=== PATIENT | female | born 1935 | race Caucasian/White ===

== ENCOUNTER 2017-03-20 06:40 | Emergency (ER) | payer MEDICARE, OTHER ==
--- NOTE | 2017-03-20 07:05 | EDM.PDOC ---
ED HPI GENERAL MEDICAL PROBLEM - General Chief Complaint: Abdominal Pain Stated Complaint: [id number] SEVERE ABDOMINAL PAIN Time Seen by Provider: 03/20/17 07:00 Source of Information: Reports: Patient, EMS, Family (son), Old Records, RN, RN Notes Reviewed History Limitations: Reports: No Limitations - History of Present Illness INITIAL COMMENTS - FREE TEXT/NARRATIVE: Arrives from home by POV with c/o waking with sudden onset of upper abdominal pain which progressively worsened to severe and became generalized abdominal pain over the course of 2 to 3 hours. Pt reports intense nausea, and began vomiting on arrival to the ER. She denies radiating pain fever, diarrhea, constipation, abdominal distention, or urinary symptoms. Admits to chills. Last ate at dinner last evening. Last BM was this morning, and was normal with no blood, dark, black, or melanotic stool. Onset: Sudden Onset Date: 03/20/17 Onset Time: 03:00 Duration: Constant, Getting Worse Location: Reports: Abdomen Quality: Reports: Ache, Pressure, Sharp Severity: Severe Improves with: Reports: None Worsens with: Reports: None Context: Denies: Activity, Exercise, Lifting, Sick Contact, Trauma Associated Symptoms: Reports: No Other Symptoms Upper Mid-Anterior Abdomen Pain Score (Numeric/FACES): 8 - Related Data Allergies Allergy/AdvReac Type Severity Reaction Status Date / Time codeine Allergy Anxiety Verified 11/10/16 07:34 naloxone [From Narcan] Allergy Nausea and Verified 11/09/16 13:27 Vomiting Home Meds: Home Meds Acetaminophen 500 mg PO ASDIRECTED PRN 11/09/16 [History] Aspirin [Lo-Dose Aspirin EC] 81 mg PO DAILY 11/09/16 [History] Calcium Carbonate/Vitamin D3 [Calcium 600 + Vit D Softgel] 2 tab PO DAILY [History] Gabapentin [Neurontin] 300 mg PO QID 11/09/16 [History] Metoprolol Succinate [Toprol XL] 25 mg PO DAILY 11/09/16 [History] Multivitamin [One Daily] 1 tab PO DAILY 11/09/16 [History] Simvastatin [Zocor] 20 mg PO BEDTIME 11/09/16 [History] Past Medical History Cardiovascular History: Reports: Heart Murmur, Heart Valve Replacement (mitral) , High Cholesterol, Hypertension Gastrointestinal History: Reports: Irritable Bowel Syndrome Neurological History: Reports: Neuropathy, Peripheral Social & Family History - Family History Family Medical History: Noncontributory - Caffeine Use Caffeine Use: Reports: Coffee - Alcohol Use Alcohol Use History: No - Recreational Drug Use Recreational Drug Use: No - Living Situation & Occupation Living situation: Reports: with Significant Other Occupation: Retired ED ROS GENERAL - Review of Systems Review Of Systems: ROS reveals no pertinent complaints other than HPI. ED EXAM, GI/ABD - Physical Exam Exam: See Below Exam Limited By: No Limitations General Appearance: Alert, WD/WN, Anxious, Mild Distress (with abdominal pain), Active Emesis Eyes: Bilateral: Normal Appearance Nose: Normal Inspection Throat/Mouth: Normal Inspection, Normal Oropharynx, Normal Voice, No Airway Compromise Head: Atraumatic, Normocephalic Neck: Normal Inspection, Supple, Non-Tender, Full Range of Motion Respiratory/Chest: No Respiratory Distress, Lungs Clear, Normal Breath Sounds, No Accessory Muscle Use, Chest Non-Tender Cardiovascular: Regular Rate, Rhythm, No Edema GI/Abdominal: Soft, No Distention, No Abnormal Bruit, Pelvis Stable, Hypoactive Bowel Sounds, Tenderness (generalized, worse at epigastric region). No: Guarding, Rebound, Rigidity (Female) Exam: Deferred Rectal (Female) Exam: Deferred Back Exam: Normal Inspection Extremities: Normal Inspection Neurological: Alert, Oriented, CN II-XII Intact, Normal Cognition, No Motor/ Sensory Deficits Psychiatric: Anxious Skin Exam: Warm, Intact, Normal Color, No Rash, Diaphoretic Course - Vital Signs Last Recorded V/S: Last Vital Signs Temp 35.8 C 03/20/17 07:04 Pulse 98 03/20/17 07:04 Resp 16 03/20/17 07:04 BP 125/98 H 03/20/17 07:04 Pulse Ox 87 L 03/20/17 07:04 - Orders/Labs/Meds Orders: Active Orders 24 hr Category Date Time Status Peripheral IV Care [RC] . DIRECTED Care 03/20/17 07:13 Active Abdomen Pelvis w Cont [CT] Stat Exams 03/20/17 08:29 Taken CULTURE BLOOD [BC] Stat Lab 03/20/17 07:24 Results CULTURE BLOOD [BC] Stat Lab 03/20/17 07:35 Results Sodium Chloride 0.9% [Normal Saline] 1,000 ml Med 03/20/17 07:13 Active IV .BOLUS Sodium Chloride 0.9% [Saline Flush] Med 03/20/17 07:13 Active 10 ml FLUSH ASDIRECTED PRN Blood Culture x2 Reflex Set [OM.PC] Stat Oth 03/20/17 07:12 Ordered Peripheral IV Insertion Adult [OM.PC] Stat Ot 03/20/17 07:12 Ordered Medication Orders Sodium Chloride (Normal Saline) 1,000 mls @ 250 mls/hr IV .BOLUS ONE Stop: 03/20/17 11:12 Last Admin: 03/20/17 07:33 Dose: 250 mls/hr Sodium Chloride (Saline Flush) 10 ml FLUSH ASDIRECTED PRN PRN Reason: Keep Vein Open Labs: Laboratory Tests 03/20/17 03/20/17 03/20/17 Range/Units 07:35 07:39 07:39 WBC 8.9 (5.0-10.0) 10^3/uL RBC 4.90 (4.2-5.4) 10^6/uL Hgb 15.0 (12.0-16.0) g/dL Hct 44.4 (37.0-47.0) % MCV 90.6 (80-100) fL MCH 30.6 (27.0-34.0) pg MCHC 33.8 (33.0-35.0) g/dL Plt Count 127 L (150-450) 10^3/uL Neut % (Auto) 83.3 H (42.2-75.2) % Lymph % (Auto) 12.9 L (20.5-50.1) % [place] % (Auto) 3.5 (2-8) % Eos % (Auto) 0.3 L (1.0-3.0) % Baso % (Auto) 0.0 (0.0-1.0) % Sodium 144 (135-145) mmol/L Potassium 4.1 (3.6-5.0) mmol/L Chloride 102 (101-111) mmol/L Carbon Dioxide 26.0 (21.0-31.0) mmol/L Anion Gap 20.1 BUN 14 (7-18) mg/dL Creatinine 0.7 (0.6-1.3) mg/dL Est Cr Clr Drug Dosing TNP Estimated GFR (MDRD) > 60 BUN/Creatinine Ratio 20.00 Glucose 185 H (74-105) mg/dL Lactic Acid 4.1 H (0.5-2.2) mmol/L Calcium 9.8 (8.4-10.2) mg/dl Total Bilirubin 0.7 (0.2-1.0) mg/dL AST 27 (10-42) IU/L ALT 21 (10-60) IU/L Alkaline Phosphatase 61 (42-121) IU/L Troponin I < 0.02 (0.00-0.02) ng/ml Total Protein 7.1 (6.7-8.2) g/dl Albumin 4.3 (3.2-5.5) g/dl Globulin 2.8 Albumin/Globulin Ratio 1.54 Amylase 67 (28-100) U/L Lipase 21 L (22-51) U/L Urine Color (YELLOW) Urine Appearance (CLEAR) Urine pH (5.0-9.0) Ur Specific [place] (1.005-1.030) Urine Protein (NEGATIVE) Urine Glucose (UA) (NEGATIVE) Urine Ketones (NEGATIVE) Urine Occult Blood (NEGATIVE) Urine Nitrite (NEGATIVE) Urine Bilirubin (NEGATIVE) Urine Urobilinogen (0.2-1.0) mg/dL Ur Leukocyte Esterase (NEGATIVE) Urine RBC /HPF Urine WBC (0-5/HPF) /HPF Amorphous Sediment (0/HPF) /HPF Urine Bacteria (0-FEW/HPF) /HPF 07/08/17 Range/Units 08:45 WBC (5.0-10.0) 10^3/uL RBC (4.2-5.4) 10^6/uL Hgb (12.0-16.0) g/dL Hct (37.0-47.0) % MCV (80-100) fL MCH (27.0-34.0) pg MCHC (33.0-35.0) g/dL Plt Count (150-450) 10^3/uL Neut % (Auto) (42.2-75.2) % Lymph % (Auto) (20.5-50.1) % [place] % (Auto) (2-8) % Eos % (Auto) (1.0-3.0) % Baso % (Auto) (0.0-1.0) % Sodium (135-145) mmol/L Potassium (3.6-5.0) mmol/L Chloride (101-111) mmol/L Carbon Dioxide (21.0-31.0) mmol/L Anion Gap BUN (7-18) mg/dL Creatinine (0.6-1.3) mg/dL Est Cr Clr Drug Dosing Estimated GFR (MDRD) BUN/Creatinine Ratio Glucose (74-105) mg/dL Lactic Acid (0.5-2.2) mmol/L Calcium (8.4-10.2) mg/dl Total Bilirubin (0.2-1.0) mg/dL AST (10-42) IU/L ALT (10-60) IU/L Alkaline Phosphatase (42-121) IU/L Troponin I (0.00-0.02) ng/ml Total Protein (6.7-8.2) g/dl Albumin (3.2-5.5) g/dl Globulin Albumin/Globulin Ratio Amylase (28-100) U/L Lipase (22-51) U/L Urine Color Dark yellow (YELLOW) Urine Appearance Turbid (CLEAR) Urine pH 7.5 (5.0-9.0) Ur Specific [place] 1.020 (1.005-1.030) Urine Protein Trace H (NEGATIVE) Urine Glucose (UA) Negative (NEGATIVE) Urine Ketones 40 H (NEGATIVE) Urine Occult Blood Trace-intact H (NEGATIVE) Urine Nitrite Negative (NEGATIVE) Urine Bilirubin Negative (NEGATIVE) Urine Urobilinogen 0.2 (0.2-1.0) mg/dL Ur Leukocyte Esterase Negative (NEGATIVE) Urine RBC 0-5 /HPF Urine WBC 0-5 (0-5/HPF) /HPF Amorphous Sediment Many H (0/HPF) /HPF Urine Bacteria Rare (0-FEW/HPF) /HPF Meds: Medications Generic Name Dose Route Start Last Admin Trade Name Freq PRN Reason Stop Dose Admin Sodium Chloride 1,000 mls @ 250 mls/hr 03/20/17 07:13 03/20/17 07:33 Normal Saline IV 03/20/17 11:12 250 mls/hr .BOLUS ONE Administration Sodium Chloride 10 ml 03/20/17 07:13 Saline Flush FLUSH ASDIRECTED PRN Keep Vein Open Discontinued Medications Generic Name Dose Route Start Last Admin Trade Name Freq PRN Reason Stop Dose Admin Hydromorphone HCl 0.5 mg 03/20/17 07:13 03/20/17 07:35 Dilaudid IVPUSH 03/20/17 07:14 0.5 mg ONETIME ONE Administration Iopamidol 75 ml 03/20/17 08:28 03/20/17 09:30 Isovue-300 (61%) IVPUSH 03/20/17 08:29 36 ml ONETIME ONE Administration Ondansetron HCl 4 mg 03/20/17 07:13 03/20/17 07:34 Zofran IV 03/20/17 07:14 4 mg ONETIME ONE Administration - Radiology Interpretation Free Text/Narrative:: CT Abd/Pelvis: Poss. internal hernia with extensive small bowel and mesenteric inflammation concerning for ischemia, and early SBO with small volume ascites per Rad. report. CT Results Date: 03/20/17 Departure - Departure Time of Disposition: 10:03 Disposition: DC/Tfer to Acute Hospital 02 Condition: Critical Clinical Impression: Acute ischemia of small intestine, Small bowel obstruction - Discharge Information Forms: ED Department Discharge, Interfacility Transfer EMTALA - My Orders Last 24 Hours: My Active Orders 03/20/17 07:12 Blood Culture x2 Reflex Set [OM.PC] Stat Peripheral IV Insertion Adult [OM.PC] Stat 03/20/17 07:13 Peripheral IV Care [RC] . DIRECTED Sodium Chloride 0.9% [Normal Saline] 1,000 ml IV .BOLUS Sodium Chloride 0.9% [Saline Flush] 10 ml FLUSH ASDIRECTED PRN 03/20/17 07:24 CULTURE BLOOD [BC] Stat 03/20/17 07:35 CULTURE BLOOD [BC] Stat 03/20/17 08:29 Abdomen Pelvis w Cont [CT] Stat - Assessment/Plan Last 24 Hours: My Active Orders 03/20/17 07:12 Blood Culture x2 Reflex Set [OM.PC] Stat Peripheral IV Insertion Adult [OM.PC] Stat 03/20/17 07:13 Peripheral IV Care [RC] . DIRECTED Sodium Chloride 0.9% [Normal Saline] 1,000 ml IV .BOLUS Sodium Chloride 0.9% [Saline Flush] 10 ml FLUSH ASDIRECTED PRN 03/20/17 07:24 CULTURE BLOOD [BC] Stat 03/20/17 07:35 CULTURE BLOOD [BC] Stat 03/20/17 08:29 Abdomen Pelvis w Cont [CT] Stat
[2017-03-20 07:06] VITALS: BP 125/98
[2017-03-20] MEDS ORDERED: Sodium Chloride 0.9% 10 ML Syringe FLUSH PRN (07:13)
[2017-03-20] MEDS ORDERED: Ondansetron 4 MG/2 ML SDV IV ONE (07:13)
[2017-03-20] MEDS ORDERED: HYDROmorphone 1 MG/ML Syringe IVPUSH ONE (07:13)
[2017-03-20] MEDS ORDERED: Sodium Chloride 0.9% 1,000 ML IV ONE (07:13)
[2017-03-20 08:12] LABS: CHLORIDE,CL 102 mmol/L (101-111); SODIUM,NA 144 mmol/L (135-145)
[2017-03-20] MEDS ORDERED: Iopamidol 612 MG/ML 75 ML Bottle IVPUSH ONE (08:28)
== END 2017-03-20 10:21 ==
LOC: DL.ED 06:40
DX: K55.019 Acute (reversible) ischemia of small intestine, extent unspecified (principal); K56.60 Unspecified intestinal obstruction; E78.00 Pure hypercholesterolemia, unspecified; I10 Essential (primary) hypertension; Z88.5 Allergy status to narcotic agent; Z79.899 Other long term (current) drug therapy; Z79.82 Long term (current) use of aspirin
CPT/HCPCS: 36415; 74177; 80053; 81001; 82150; 83605; 83690; 84484; 85025; 87040; 96361; 96374; 96375; 99285; J1170; J2405; J7030; J7050; Q9967

== ENCOUNTER 2020-12-13 11:03 | Emergency (ER) | payer MEDICARE, OTHER ==
[2020-12-13 11:35] VITALS: BP 124/85; PULSE 72
--- NOTE | 2020-12-13 11:52 | EDM.PDOC ---
<Ted Baptiste Shavonne - Last Filed: 12/13/20 13:39> ED HPI GENERAL MEDICAL PROBLEM - General Chief Complaint: Back Pain or Injury Stated Complaint: SENT FROM [facility] Time Seen by Provider: 12/13/20 11:30 Source of Information: Reports: Patient History Limitations: Reports: No Limitations - History of Present Illness INITIAL COMMENTS - FREE TEXT/NARRATIVE: 85 y/o F c/o lower back pain since x 6 days. Pt states on Wednesday she awoke with the pain in her lower back that was not brought on by any injury or straining. Pt feels weak and unable to roll over in bed or stand without assistance. Back pain is worse when bending over or twisting her hips. Has been taking acetaminophen with no relief. At rest pain is minimal. Also reports decreased urine output, and constipation. Hx of Aflutter that was corrected with cardioversion. Is now normally in sinus rhythm but her MD still has her on Coumadin. INR yesterday was 3.6 and her primary provider is aware. Other hx of IBS. Denies romo, vision prob, cp, db, abd pn, radiculopathy, numbness or tingling in extremities. Onset: Sudden Duration: Day(s): Location: Reports: Back Quality: Reports: Ache, Sharp Severity: Moderate Improves with: Reports: Rest Worsens with: Reports: Movement Bilateral Lower Back Pain Score (Numeric/FACES): 4 - Related Data Allergies Allergy/AdvReac Type Severity Reaction Status Date / Time codeine Allergy Anxiety Verified 12/13/20 11:24 naloxone [From Narcan] Allergy Nausea and Verified 12/13/20 11:24 Vomiting Home Meds: Home Meds Acetaminophen 500 mg PO ASDIRECTED PRN 11/09/16 [History] Aspirin [Lo-Dose Aspirin EC] 81 mg PO DAILY 11/09/16 [History] Calcium Carbonate/Vitamin D3 [Calcium 600-Vit D3 500 Softgel] 2 tab PO DAILY 11/09/16 [History] Metoprolol Succinate [Toprol XL] 25 mg PO DAILY 11/09/16 [History] Simvastatin [Zocor] 20 mg PO BEDTIME 11/09/16 [History] Past Medical History HEENT History: Reports: Impaired Vision Cardiovascular History: Reports: Heart Murmur, Heart Valve Replacement, High Cholesterol, Hypertension Gastrointestinal History: Reports: Irritable Bowel Syndrome Neurological History: Reports: Neuropathy, Peripheral - Past Surgical History HEENT Surgical History: Reports: Tonsillectomy GI Surgical History: Reports: Appendectomy Social & Family History - Family History Family Medical History: No Pertinent Family History - Tobacco Use Tobacco Use Status *Q: Never Tobacco User Second Hand Smoke Exposure: No - Caffeine Use Caffeine Use: Reports: None - Recreational Drug Use Recreational Drug Use: No - Living Situation & Occupation Living situation: Reports: with Significant Other Occupation: Retired ED ROS GENERAL - Review of Systems Review Of Systems: Comprehensive ROS is negative, except as noted in HPI. ED EXAM,LOWER BACK PAIN/INJURY - Physical Exam Exam: See Below Exam Limited By: No Limitations General Appearance: Alert, WD/WN, No Apparent Distress Eye Exam: Bilateral Eye: PERRL Throat/Mouth: Normal Inspection, Normal Lips, Normal Teeth, Normal Gums, Normal Oropharynx, Normal Voice, No Airway Compromise Head: Atraumatic, Normocephalic Neck: Normal Inspection, Supple, Non-Tender, Full Range of Motion Respiratory/Chest: No Respiratory Distress, Lungs Clear, Normal Breath Sounds, No Accessory Muscle Use, Chest Non-Tender Cardiovascular: Normal Peripheral Pulses, Regular Rate, Rhythm, No Edema, No Gallop, No JVD, No Murmur, No Rub GI/Abdominal: Normal Bowel Sounds, Soft, Non-Tender, No Organomegaly, Pelvis Stable, Other (tenderness over R posterior flank) (Female) Exam: Deferred Rectal (Female) Exam: Deferred Back Exam: Normal Inspection, Other (decreased range of motion with spinal flexion) Extremities: Normal Inspection, Normal Range of Motion, Non-Tender, No Pedal Edema, Normal Capillary Refill Neurological: Alert, Normal Mood/Affect, Normal Dorsiflexion, CN II-XII Intact, Normal Plantar Flexion, Normal Gait, Normal Reflexes, Oriented x 3, Straight Leg Raise (L), Other (straight leg raise on the R is weaker with less range of motion than the L) Psychiatric: Normal Affect, Normal Mood Skin Exam: Warm, Dry, Intact, Normal Color, No Rash Course - Re-Assessments/Exams Free Text/Narrative Re-Assessment/Exam: 12/13/20 13:39 Discussed xrays, ct and laboratory findings with pt and her . She understands she needs to follow up in clinic on wednesday in order to have her spinal issues further evaluated. Departure - Departure Time of Disposition: 13:41 Disposition: Home, Self-Care 01 Condition: Fair Clinical Impression: Compression fracture Constipation Qualifiers: Constipation type: other constipation type Qualified Code(s): K59.09 - Other constipation - Discharge Information *PRESCRIPTION DRUG MONITORING PROGRAM REVIEWED*: Not Applicable *COPY OF PRESCRIPTION DRUG MONITORING REPORT IN PATIENT JOSÉ: Not Applicable Instructions: Constipation, Adult, [id number], Spinal Compression Fracture Forms: ED Department Discharge Additional Instructions: RX: [place] RX: Lactulose Follow up with your primary care facility on Wednesday to have you spinal problems further evaluated. Use the Lactulose as prescribed for constipation. Consider getting Metamucil or another form of dietary fiber to help you have regular bowel movements. If any new symptoms or concerns develop contact your primary care facility or return to the ER. Sepsis Event Note (ED) - Evaluation Sepsis Screening Result: No Definite Risk <Prabhjot Jaeger - Last Filed: 12/13/20 13:46> Course - Vital Signs Last Recorded V/S: Last Vital Signs Temp 97.2 F 12/13/20 11:26 Pulse 72 12/13/20 11:26 Resp 16 12/13/20 11:26 BP 124/85 12/13/20 11:26 Pulse Ox 97 12/13/20 11:26 - Orders/Labs/Meds Labs: Laboratory Tests 12/13/20 12/13/20 12/13/20 Range/Units 12:07 12:07 12:40 WBC 5.6 (5.0-10.0) 10^3/uL RBC 4.51 (4.2-5.4) 10^6/uL Hgb 13.0 D (12.0-16.0) g/dL Hct 39.9 (37.0-47.0) % MCV 88.5 (80-100) fL MCH 28.8 (27.0-34.0) pg MCHC 32.6 L (33.0-35.0) g/dL Plt Count 154 (150-450) 10^3/uL Neut % (Auto) 69.8 (42.2-75.2) % Lymph % (Auto) 15.5 L (20.5-50.1) % [place] % (Auto) 12.3 H (2-8) % Eos % (Auto) 2.0 (1.0-3.0) % Baso % (Auto) 0.4 (0.0-1.0) % Sodium 142 (136-145) mmol/L Potassium 4.1 (3.5-5.1) mmol/L Chloride 102 (98-107) mmol/L Carbon Dioxide 31 (21-32) mmol/L Anion Gap 13.1 H (7-13) mEq/L BUN 19 H (7-18) mg/dL Creatinine 0.59 (0.55-1.02) mg/dL Est Cr Clr Drug Dosing 65.01 mL/min Estimated GFR (MDRD) > 60 BUN/Creatinine Ratio 32.2 (No establ ref range) Glucose 88 (74-99) mg/dL Calcium 9.0 (8.5-10.1) mg/dL Total Bilirubin 0.3 (0.2-1.0) mg/dL AST 16 (15-37) U/L ALT 19 (14-59) U/L Alkaline Phosphatase 86 (46-116) U/L Total Protein 7.0 (6.4-8.2) g/dL Albumin 3.3 L (3.4-5.0) g/dL Globulin 3.7 Albumin/Globulin Ratio 0.89 Urine Color Yellow (YELLOW) Urine Appearance Cloudy (CLEAR) Urine pH 8.5 (5.0-9.0) Ur Specific [place] 1.020 (1.005-1.030) Urine Protein Negative (NEGATIVE) Urine Glucose (UA) Negative (NEGATIVE) Urine Ketones Negative (NEGATIVE) Urine Occult Blood Small H (NEGATIVE) Urine Nitrite Negative (NEGATIVE) Urine Bilirubin Negative (NEGATIVE) Urine Urobilinogen 0.2 (0.2-1.0) mg/dL Ur Leukocyte Esterase Negative (NEGATIVE) Urine RBC 5-10 H /HPF Urine WBC 0-5 (0-5/HPF) /HPF Ur Epithelial Cells Rare (NOT SEEN) /HPF Amorphous Sediment Many H (NOT SEEN) /HPF Urine Bacteria Occasional (0-FEW/HPF) /HPF Urine Mucus Not seen (NOT SEEN) /LPF Meds: Medications Discontinued Medications Generic Name Dose Route Start Last Admin Trade Name Freq PRN Reason Stop Dose Admin Lactulose 20 gm 12/13/20 13:38 12/13/20 13:43 Lactulose Soln 10 Gm/15 Ml 30 Ml Ud Cup PO 12/13/20 13:39 20 gm ONETIME ONE Administration - Re-Assessments/Exams Free Text/Narrative Re-Assessment/Exam: 12/13/20 I personally performed or re-performed the physical examination and medical decision making. I have verified all student documentation or findings, including history, physical exam and/or medical decision making. Sepsis Event Note (ED) - Focused Exam Vital Signs: Vital Signs Temp Pulse Resp BP Pulse Ox 12/13/20 11:26 97.2 F 72 16 124/85 97
--- NOTE | 2020-12-13 12:26 | CR ---
EXAMINATION: Abdomen 1V Flat SEX: Female AGE: 85 years CLINICAL HISTORY: 85-year-old female with back pain and "constipation". Interpretation: (AP supine film abdomen) 1. Small amount of stool concentrated in the rectal vault (pelvis). 2. No abdominal soft tissue mass lesion. No foreign bodies. 3. No sign of mechanical bowel obstruction or gross free intraperitoneal air. 4. Upper abdominal viscera unremarkable and lung bases clear. 5. Chronic severe, degenerative and destructive arthritic changes L4-5 disc space. CONCLUSION: Nonspecific Plain film exam abdomen. Abnormal lower lumbar spine.
--- NOTE | 2020-12-13 12:31 | CR ---
EXAMINATION: Lumbar Spine 2 V SEX: Female AGE: 85 years CLINICAL HISTORY: 85-year-old female complaining of back pain (constipation). INTERPRETATION: Abnormal. 1. New insufficiency fracture (mild collapse) L3 vertebral body when compared to MRI exam, 29 July 2010. 2. Subtle, old anterior compression L1 vertebral body i.e. present and unchanged since July 2010. 3. Chronic severe disc degeneration L4-5 level i.e. disc space narrowing with endplate sclerosis and hypertrophic marginal spondylosis as noted on previous MRI exam. 4. No sign of pathologic skeletal lesion, other lumbar fracture or spondylolisthesis (dislocation). 5. Symmetric spacing normal-appearing SI joints. 6. 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
[2020-12-13 12:33] LABS: ANION GAP 13.1 mEq/L (7-13); CHLORIDE,CL 102 mmol/L (98-107); SODIUM,NA 142 mmol/L (136-145)
[2020-12-13] MEDS ORDERED: Lactulose Soln 10 GM/15 ML 30 ML UD Cup PO ONE (13:38)
== END 2020-12-13 14:02 | disposition home or self-care (01) ==
LOC: DL.ED 11:03
DX: M48.56XA Collapsed vertebra, not elsewhere classified, lumbar region, initial encounter for fracture (principal); K59.09 Other constipation; E78.00 Pure hypercholesterolemia, unspecified; G62.9 Polyneuropathy, unspecified; Z79.899 Other long term (current) drug therapy; Z79.82 Long term (current) use of aspirin; Z88.5 Allergy status to narcotic agent; Z88.8 Allergy status to other drugs, medicaments and biological substances
CPT/HCPCS: 36415; 72100; 74018; 80053; 81001; 85025; 99283; A9270

== ENCOUNTER 2022-07-24 13:41 | Inpatient (IN) | payer MEDICARE, OTHER ==
[2022-07-24] MEDS ORDERED: Albuterol 0.083% 2.5 MG/3 ML Neb Soln NEB PRN (14:29)
[2022-07-24] MEDS ORDERED: Acetaminophen 325 MG Tab PO PRN (14:29)
[2022-07-24] MEDS ORDERED: Docusate Sodium 100 MG Cap PO PRN (14:29)
[2022-07-24] MEDS ORDERED: Bisacodyl 5 MG Tab PO PRN (14:29)
[2022-07-24] MEDS ORDERED: Ondansetron 4 MG/2 ML SDV IVPUSH PRN (14:29)
[2022-07-24] MEDS ORDERED: Sodium Chloride 0.9% 1,000 ML IV SCH (14:30)
[2022-07-24] MEDS ORDERED: Melatonin 3 MG Tab PO PRN (14:33)
[2022-07-24] MEDS ORDERED: Albuterol 6.7 GM Inhaler INH PRN (14:48)
[2022-07-24] MEDS ORDERED: guaiFENesin/Dextromethorphan 100-10 MG/5 ML Soln 5 ML Cup PO PRN (14:50)
[2022-07-24] MEDS ORDERED: cefTRIAXone 1 GM, Lidocaine 1% 2.1 ML IM SCH ×2 (15:00)
[2022-07-24] MEDS ORDERED: Azithromycin 500 MG in Sodium Chloride 0.9% 250 ML IV ONE (15:00)
[2022-07-24] MEDS ORDERED: cefTRIAXone 1 GM Vial IM SCH (15:00)
[2022-07-24] MEDS ORDERED: Warfarin 5 MG Tab PO SCH ×2 (15:15)
[2022-07-24] MEDS: Dexamethasone 4 MG/ML SDV IVPUSH SCH (16:00)
[2022-07-24] MEDS: guaiFENesin 600 MG Tab.ER PO SCH ×2 (16:00→21:36)
[2022-07-24 16:27] LABS: ANION GAP 13.6 mEq/L (7-13)
[2022-07-24] MEDS ORDERED: Warfarin 2.5 MG Tab PO ONE (16:30)
[2022-07-24] MEDS: cefTRIAXone 1 GM in Sodium Chloride 0.9% 50 ML IV SCH (17:52)
[2022-07-24] MEDS: Simvastatin 10 MG Tab PO SCH (21:36)
[2022-07-24] MEDS: Benzocaine/Cetylpyridinium/Menthol Lozenge MUCMEM PRN (21:37)
[2022-07-25 06:55] LABS: ANION GAP 13.6 mEq/L (7-13)
[2022-07-25] MEDS: Metoprolol Succinate 25 MG Tab.ER PO SCH (10:15)
[2022-07-25] MEDS: guaiFENesin 600 MG Tab.ER PO SCH ×2 (10:16→20:07)
[2022-07-25] MEDS: Dexamethasone 4 MG/ML SDV IVPUSH SCH (10:17)
[2022-07-25] MEDS: Benzocaine/Cetylpyridinium/Menthol Lozenge MUCMEM PRN ×2 (10:17→20:06)
[2022-07-25] MEDS: Azithromycin 250 MG Tab PO SCH (10:17)
[2022-07-25] MEDS: Calcium Carbonate/Vitamin D3 1250 MG-5 MCG Tab PO SCH (10:17)
[2022-07-25] MEDS: Aspirin 325 MG Tab.EC PO SCH (10:17)
[2022-07-25] MEDS: Potassium Chloride 10 MEQ Tab.ER PO SCH (10:17)
[2022-07-25] MEDS ORDERED: Warfarin 2.5 MG Tab PO ONE (14:00)
[2022-07-25] MEDS: cefTRIAXone 1 GM in Sodium Chloride 0.9% 50 ML IV SCH (16:10)
[2022-07-25] MEDS: Simvastatin 10 MG Tab PO SCH (20:06)
[2022-07-26 07:07] LABS: ANION GAP 11.1 mEq/L (7-13)
[2022-07-26] MEDS: Potassium Chloride 10 MEQ Tab.ER PO SCH (08:40)
[2022-07-26] MEDS: Dexamethasone 4 MG/ML SDV IVPUSH SCH (08:40)
[2022-07-26] MEDS: Calcium Carbonate/Vitamin D3 1250 MG-5 MCG Tab PO SCH (08:40)
[2022-07-26] MEDS: Azithromycin 250 MG Tab PO SCH (08:40)
[2022-07-26] MEDS: Metoprolol Succinate 25 MG Tab.ER PO SCH (08:41)
[2022-07-26] MEDS: guaiFENesin 600 MG Tab.ER PO SCH (08:41)
[2022-07-26] MEDS: Aspirin 325 MG Tab.EC PO SCH (08:41)
[2022-07-26 12:03] VITALS: BP 94/47; PULSE 62
[2022-07-26] MEDS ORDERED: Azithromycin 250 MG Tab ONE (13:34)
== END 2022-07-26 14:05 | disposition home or self-care (01) | DRG 179 ==
LOC: DL.MS 13:41
PROVIDERS: ADMIT Internal Medicine; ATTEND Internal Medicine
PROC: 3E0333Z Introduction of Anti-inflammatory into Peripheral Vein, Percutaneous Approach (ICD-10-PCS; principal; 2022-07-26)
DX: U07.1 COVID-19 (principal); I48.91 Unspecified atrial fibrillation; I10 Essential (primary) hypertension; E78.5 Hyperlipidemia, unspecified; R13.10 Dysphagia, unspecified; H54.7 Unspecified visual loss; E78.00 Pure hypercholesterolemia, unspecified; H91.90 Unspecified hearing loss, unspecified ear; G62.9 Polyneuropathy, unspecified; Z86.16 Personal history of COVID-19; Z88.5 Allergy status to narcotic agent; Z88.8 Allergy status to other drugs, medicaments and biological substances; Z79.82 Long term (current) use of aspirin; Z79.01 Long term (current) use of anticoagulants; Z95.2 Presence of prosthetic heart valve; Z90.49 Acquired absence of other specified parts of digestive tract
CPT/HCPCS: 36415; 71045; 80048; 80076; 81003; 83605; 85025; 85610; 86140; 87040; 87086; 99222; 99232; 99238; A9270-GY; J0456; J0696; J1100; J7030; J7050

== ENCOUNTER 2023-02-10 14:06 | Emergency (ER) | payer MEDICARE, OTHER ==
[2023-02-10] MEDS ORDERED: Sodium Chloride 0.9% 10 ML Syringe FLUSH PRN (14:20)
[2023-02-10 14:30] VITALS: BP 134/93; PULSE 78
[2023-02-10 14:30] LABS: BASOPHILS PERCENT AUTO 0.2 % (0.0-1.0); EOSINOPHILS PERCENT AUTO 2.1 % (1.0-3.0); HEMATOCRIT 26.9 % (37.0-47.0); HEMOGLOBIN 8.8 g/dL (12.0-16.0); LYMPHOCYTES PERCENT AUTO 21.5 % (20.5-50.1); MEAN CORPUSCULAR HGB CONC 32.7 g/dL (33.0-35.0); MEAN CORPUSCULAR VOLUME 91.8 fL (80-100); MONOCYTES PERCENT AUTO 10.3 % (2-8); NEUTROPHILS PERCENT AUTO 65.9 % (42.2-75.2); PLATELET COUNT,PLT 149 10^3/uL (150-450); RED BLOOD CELL COUNT 2.93 10^6/uL (4.2-5.4); WHITE BLOOD CELL COUNT,WBC 5.2 10^3/uL (5.0-10.0)
[2023-02-10 14:53] LABS: ALANINE AMINOTRANSFERASE,ALT 18 U/L (14-59); ALBUMIN 3.3 g/dL (3.4-5.0); ALKALINE PHOSPHATASE 75 U/L (46-116); ASPARTATE AMNIOTRANSFERASE,AST 14 U/L (15-37); BILIRUBIN TOTAL 0.4 mg/dL (0.2-1.0); BLOOD UREA NITROGEN,BUN 18 mg/dL (7-18); BUN/CREATININE RATIO 25.7 (No establ ref range); CALCIUM 8.4 mg/dL (8.5-10.1); CARBON DIOXIDE,CO2 29 mmol/L (21-32); CHLORIDE,CL 104 mmol/L (98-107); EST CRCL DRUG DOSING (CG) 49.82 mL/min; GLUCOSE RANDOM 99 mg/dL (70-99); LACTIC ACID 1.2 mmol/L (0.4-2.0); SODIUM,NA 138 mmol/L (136-145)
[2023-02-10 14:55] LABS: A/G RATIO 1.22; C-REACTIVE PROTEIN < 0.2 mg/dL (0.0-0.9); ESTIMATED GFR 84 mL/min (>=60)
[2023-02-10] MEDS ORDERED: Iopamidol 612 MG/ML 100 ML Bottle IVPUSH ONE (14:57)
[2023-02-10 14:59] LABS: INR 2.3 (0.9-1.2); PROTHROMBIN TIME 23.2 SEC (9.0-12.0)
[2023-02-10 15:28] LABS: APPEARANCE,URINE CLEAR (CLEAR); BILIRUBIN,URINE NEGATIVE (NEGATIVE); COLOR,URINE YELLOW (YELLOW); GLUCOSE,URINE NEGATIVE (NEGATIVE); KETONES,URINE NEGATIVE (NEGATIVE); LEUKOCYTE ESTERASE,URINE NEGATIVE (NEGATIVE); NITRITE,URINE NEGATIVE (NEGATIVE); OCCULT BLOOD,URINE TRACE-LYSED (NEGATIVE); PH,URINE 7.5 (5.0-9.0); PROTEIN,URINE NEGATIVE (NEGATIVE); UROBILINOGEN,URINE 0.2 mg/dL (0.2-1.0)
[2023-02-10] MEDS ORDERED: Pantoprazole 40 MG Vial IVPUSH ONE (15:29)
[2023-02-10 15:39] LABS: AMORPHOUS SEDIMENT,URINE FEW /HPF (NOT SEEN); BACTERIA,URINE FEW /HPF (0-FEW/HPF); EPITHELIAL CELLS,URINE FEW /HPF (NOT SEEN); RBC,URINE 0-5 /HPF (0-5); WBC,URINE 0-5 /HPF (0-5/HPF)
== END 2023-02-10 16:06 ==
LOC: DL.ED 14:06
DX: K92.2 Gastrointestinal hemorrhage, unspecified (principal); I48.91 Unspecified atrial fibrillation; I10 Essential (primary) hypertension; E78.00 Pure hypercholesterolemia, unspecified; I48.92 Unspecified atrial flutter; Z86.16 Personal history of COVID-19; Z79.82 Long term (current) use of aspirin; Z79.899 Other long term (current) drug therapy; Z79.01 Long term (current) use of anticoagulants; Z88.5 Allergy status to narcotic agent
CPT/HCPCS: 36415; 74177; 80053; 81001; 82272; 83605; 83735; 84484; 85025; 85610; 85730; 86140; 86850; 86900; 86901; 93005; 93010; 96374; 99284; 99285-25; C9113; J3490; Q9967

== ENCOUNTER 2025-01-24 08:18 | Observation (INO) | payer MEDICARE ==
[2025-01-24] MEDS ORDERED: Morphine 2 MG/ML SYRINGE IVPUSH PRN (13:37)
[2025-01-24] MEDS: DAPTOmycin 500 MG Vial IVPUSH SCH (13:38)
[2025-01-24] MEDS: Sodium Chloride 0.9% 1,000 ML IV ONE (13:38)
[2025-01-24] MEDS ORDERED: Sodium Chloride 0.9% 10 ML Syringe FLUSH PRN (13:51)
[2025-01-24] MEDS: traMADol 50 MG Tab PO SCH ×2 (17:26→17:27)
[2025-01-24] MEDS: Acetaminophen 500 MG Tab PO SCH (17:27)
[2025-01-24] MEDS: Lactulose Soln 10 GM/15 ML 30 ML UD Cup PO SCH (21:23)
[2025-01-25] MEDS: Sodium Chloride 0.9% 1,000 ML IV ONE (08:53)
[2025-01-25] MEDS ORDERED: Sodium Chloride 0.9% 1,000 ML IV SCH (09:00)
[2025-01-25] MEDS: DAPTOmycin 500 MG Vial IVPUSH SCH (11:30)
[2025-01-25] MEDS: Calcitonin (Salmon) Nasal Spray 3.7 ML Bottle NAS ONE (13:28)
[2025-01-25] MEDS ORDERED: Warfarin 2 MG Tab PO SCH ×2 (14:00)
[2025-01-25 16:22] VITALS: BP 134/72; PULSE 91
== END 2025-01-25 16:40 | disposition home or self-care (01) ==
LOC: DL.MS 11:21
PROVIDERS: ADMIT Student in an Organized Health Care Education/Training Program; ATTEND Student in an Organized Health Care Education/Training Program
DX: S32.010A Wedge compression fracture of first lumbar vertebra, initial encounter for closed fracture (principal); K59.04 Chronic idiopathic constipation; I48.21 Permanent atrial fibrillation; Z79.01 Long term (current) use of anticoagulants; Z79.899 Other long term (current) drug therapy; X58.XXXA Exposure to other specified factors, initial encounter
CPT/HCPCS: 96374; 96376; A9270; G0378; J0878; J7030

== ENCOUNTER 2025-02-02 09:40 | Emergency (ER) | payer MEDICARE ==
[2025-02-02] MEDS ORDERED: Sodium Chloride 0.9% 10 ML Syringe FLUSH PRN (09:54)
[2025-02-02 10:10] LABS: BASOPHILS PERCENT AUTO 0.1 % (0.0-1.0); EOSINOPHILS PERCENT AUTO 0.1 % (1.0-3.0); HEMATOCRIT 36.2 % (37.0-47.0); HEMOGLOBIN 11.3 g/dL (12.0-16.0); LYMPHOCYTES PERCENT AUTO 1.9 % (20.5-50.1); MEAN CORPUSCULAR HEMOGLOBIN 28.8 pg (27.0-34.0); MEAN CORPUSCULAR HGB CONC 31.2 g/dL (33.0-35.0); MEAN CORPUSCULAR VOLUME 92.1 fL (80-100); NEUTROPHILS PERCENT AUTO 91.9 % (42.2-75.2); PLATELET COUNT,PLT 232 10^3/uL (150-450); RED BLOOD CELL COUNT 3.93 10^6/uL (4.2-5.4)
[2025-02-02] MEDS: Iopamidol 755 Mg/ML 100 ML Bottle IVPUSH ONE (10:18)
[2025-02-02 10:26] LABS: INR 2.9 (0.9-1.2); PROTHROMBIN TIME 28.3 SEC (9.0-12.0)
[2025-02-02 10:33] LABS: ALBUMIN 2.9 g/dL (3.4-5.0); BILIRUBIN TOTAL 0.5 mg/dL (0.2-1.0); CALCIUM 9.8 mg/dL (8.5-10.1); CREATININE 0.69 mg/dL (0.55-1.02); EST CRCL DRUG DOSING (CG) 48.67 mL/min; PROTEIN TOTAL,TP 7.2 g/dL (6.4-8.2)
[2025-02-02 10:37] LABS: A/G RATIO 0.67; ANION GAP 7.1 mEq/L (7-13); POTASSIUM,K 5.1 mmol/L (3.5-5.1)
[2025-02-02] MEDS: DAPTOmycin 500 MG Vial IVPUSH ONE (11:10)
[2025-02-02] MEDS: Sodium Chloride 1 GM Tab PO ONE (12:24)
[2025-02-02] MEDS: Ampicillin/Sulbactam Na 3 GM in Sodium Chloride 0.9% 100 ML IV ONE (13:36)
[2025-02-02] MEDS: Ketorolac 30 MG/ML SDV IVPUSH ONE (13:47)
[2025-02-02 16:45] VITALS: BP 114/61; PULSE 79
== END 2025-02-02 17:13 ==
LOC: DL.ED 09:40
DX: J96.01 Acute respiratory failure with hypoxia (principal); J69.0 Pneumonitis due to inhalation of food and vomit; D72.825 Bandemia; R79.89 Other specified abnormal findings of blood chemistry; E87.1 Hypo-osmolality and hyponatremia; Z88.8 Allergy status to other drugs, medicaments and biological substances; Z88.5 Allergy status to narcotic agent; Z79.82 Long term (current) use of aspirin; Z79.899 Other long term (current) drug therapy
CPT/HCPCS: 36415; 70450; 71275; 72131; 74177; 80053; 83735; 83880; 84484; 85025; 85610; 86140; 87426; 87641; 93005; 96365; 96368; 96375; 99285; A9270; J0295; J0878; J1885; J2020; Q9967; 93010

== ENCOUNTER 2025-03-28 21:23 | Emergency (ER) | payer MEDICARE ==
[2025-03-28 22:50] VITALS: BP 111/68; PULSE 84
== END 2025-03-28 23:07 | disposition home or self-care (01) ==
LOC: DL.ED 21:23
DX: S30.0XXA Contusion of lower back and pelvis, initial encounter (principal); I48.91 Unspecified atrial fibrillation; Z86.16 Personal history of COVID-19; Z91.018 Allergy to other foods; Z88.5 Allergy status to narcotic agent; Z88.8 Allergy status to other drugs, medicaments and biological substances; Z79.82 Long term (current) use of aspirin; Z79.899 Other long term (current) drug therapy; W18.39XA Other fall on same level, initial encounter; Y93.89 Activity, other specified
CPT/HCPCS: 72190; 99285

== ENCOUNTER 2025-04-03 14:18 | Inpatient (IN) | payer MEDICARE ==
[2025-04-03 14:49] LABS: BASOPHILS PERCENT AUTO 0.1 % (0.0-1.0); EOSINOPHILS PERCENT AUTO 0.7 % (1.0-3.0); LYMPHOCYTES PERCENT AUTO 8.1 % (20.5-50.1); MONOCYTES PERCENT AUTO 8.0 % (2-8); NEUTROPHILS PERCENT AUTO 83.1 % (42.2-75.2); PLATELET COUNT,PLT 173 10^3/uL (150-450); RED BLOOD CELL COUNT 4.66 10^6/uL (4.2-5.4); WHITE BLOOD CELL COUNT,WBC 7.2 10^3/uL (5.0-10.0)
[2025-04-03 15:11] LABS: B-TYPE NATRIURETIC PEPTIDE,BNP 226 pg/ml (0-100)
[2025-04-03 15:12] LABS: INR 4.8 (0.9-1.2)
[2025-04-03 15:15] LABS: A/G RATIO 0.75; ALANINE AMINOTRANSFERASE,ALT 24 U/L (14-59); ASPARTATE AMNIOTRANSFERASE,AST 14 U/L (15-37); BILIRUBIN TOTAL 0.4 mg/dL (0.2-1.0); BLOOD UREA NITROGEN,BUN 29 mg/dL (7-18); CARBON DIOXIDE,CO2 37 mmol/L (21-32); CHLORIDE,CL 104 mmol/L (98-107); CREATININE 0.67 mg/dL (0.55-1.02); ESTIMATED GFR 84 mL/min (>=60); GLUCOSE RANDOM 78 mg/dL (70-99); POTASSIUM,K 4.2 mmol/L (3.5-5.1); PROTEIN TOTAL,TP 7.0 g/dL (6.4-8.2); SODIUM,NA 144 mmol/L (136-145)
[2025-04-03] MEDS ORDERED: Ondansetron 4 MG/2 ML SDV IVPUSH PRN (16:31)
[2025-04-03] MEDS ORDERED: Sodium Chloride 0.9% 10 ML Syringe FLUSH PRN (16:31)
[2025-04-03] MEDS ORDERED: Sennosides/Docusate Sodium 50-8.6 MG Tab PO PRN (16:31)
[2025-04-03 17:12] LABS: IRON,FE 31.0 ug/dL (50-170); PERCENT FE SATURATION 12.8 % (20.0-50.0)
[2025-04-03 17:24] LABS: FOLIC ACID 10.2 ng/mL (8.6-58.9); T4 FREE 1.28 ng/dL (0.76-1.46); TSH ULTRASENSITIVE 1.09 uIU/mL (0.36-3.74)
[2025-04-03 19:12] LABS: APPEARANCE,URINE CLEAR (CLEAR); GLUCOSE,URINE NEGATIVE (NEGATIVE); OCCULT BLOOD,URINE NEGATIVE (NEGATIVE)
[2025-04-03 19:25] LABS: EPITHELIAL CELLS,URINE FEW /HPF (NOT SEEN)
[2025-04-03] MEDS: Sodium Chloride 0.9% 10 ML Syringe FLUSH SCH (21:19)
[2025-04-04 05:55] LABS: BASOPHILS PERCENT AUTO 0.3 % (0.0-1.0); EOSINOPHILS PERCENT AUTO 1.7 % (1.0-3.0); LYMPHOCYTES PERCENT AUTO 12.0 % (20.5-50.1); MONOCYTES PERCENT AUTO 9.6 % (2-8); NEUTROPHILS PERCENT AUTO 76.4 % (42.2-75.2); PLATELET COUNT,PLT 166 10^3/uL (150-450); RED BLOOD CELL COUNT 4.29 10^6/uL (4.2-5.4); WHITE BLOOD CELL COUNT,WBC 7.1 10^3/uL (5.0-10.0)
[2025-04-04 06:09] LABS: INR 4.3 (0.9-1.2); PTT,PARTIAL THROMBOPLSTIN TIME 44.1 SEC (22.0-34.0)
[2025-04-04 06:14] LABS: ALANINE AMINOTRANSFERASE,ALT 21.0 U/L (14-59); ASPARTATE AMNIOTRANSFERASE,AST 13.0 U/L (15-37); BILIRUBIN TOTAL 0.5 mg/dL (0.2-1.0); BLOOD UREA NITROGEN,BUN 25.0 mg/dL (7-18); CARBON DIOXIDE,CO2 34.0 mmol/L (21-32); CHLORIDE,CL 104.0 mmol/L (98-107); CREATININE 0.47 mg/dL (0.55-1.02); EST CRCL DRUG DOSING (CG) 60.07 mL/min; GLUCOSE RANDOM 101.0 mg/dL (70-99); POTASSIUM,K 4.0 mmol/L (3.5-5.1); PROTEIN TOTAL,TP 6.1 g/dL (6.4-8.2); SODIUM,NA 142.0 mmol/L (136-145)
[2025-04-04 06:22] LABS: A/G RATIO 0.74; ESTIMATED GFR 92.0 mL/min (>=60)
[2025-04-04] MEDS ORDERED: Lactulose Soln 10 GM/15 ML 30 ML UD Cup PO PRN (08:03)
[2025-04-04] MEDS: Sennosides/Docusate Sodium 50-8.6 MG Tab PO SCH (20:19)
[2025-04-05 06:02] LABS: BASOPHILS PERCENT AUTO 0.2 % (0.0-1.0); EOSINOPHILS PERCENT AUTO 1.4 % (1.0-3.0); LYMPHOCYTES PERCENT AUTO 14.7 % (20.5-50.1); MONOCYTES PERCENT AUTO 10.0 % (2-8); NEUTROPHILS PERCENT AUTO 73.7 % (42.2-75.2); PLATELET COUNT,PLT 192 10^3/uL (150-450); RED BLOOD CELL COUNT 4.45 10^6/uL (4.2-5.4); WHITE BLOOD CELL COUNT,WBC 6.4 10^3/uL (5.0-10.0)
[2025-04-05 06:25] LABS: INR 1.8 (0.9-1.2); PTT,PARTIAL THROMBOPLSTIN TIME 33.8 SEC (22.0-34.0)
[2025-04-05 06:35] LABS: ALANINE AMINOTRANSFERASE,ALT 28.0 U/L (14-59); ASPARTATE AMNIOTRANSFERASE,AST 17.0 U/L (15-37); BILIRUBIN TOTAL 0.4 mg/dL (0.2-1.0); BLOOD UREA NITROGEN,BUN 26.0 mg/dL (7-18); CARBON DIOXIDE,CO2 32.0 mmol/L (21-32); CHLORIDE,CL 104.0 mmol/L (98-107); CREATININE 0.43 mg/dL (0.55-1.02); EST CRCL DRUG DOSING (CG) 65.79 mL/min; GLUCOSE RANDOM 100.0 mg/dL (70-99); POTASSIUM,K 4.5 mmol/L (3.5-5.1); PROTEIN TOTAL,TP 6.4 g/dL (6.4-8.2); SODIUM,NA 140.0 mmol/L (136-145)
[2025-04-05 06:36] LABS: A/G RATIO 0.73; ESTIMATED GFR 93.0 mL/min (>=60)
[2025-04-05] MEDS: Warfarin** 1 MG TABLET PO ONE (14:29)
[2025-04-06 06:26] LABS: BASOPHILS PERCENT AUTO 0.3 % (0.0-1.0); EOSINOPHILS PERCENT AUTO 0.8 % (1.0-3.0); LYMPHOCYTES PERCENT AUTO 10.1 % (20.5-50.1); MONOCYTES PERCENT AUTO 8.4 % (2-8); NEUTROPHILS PERCENT AUTO 80.4 % (42.2-75.2); PLATELET COUNT,PLT 219 10^3/uL (150-450); RED BLOOD CELL COUNT 4.85 10^6/uL (4.2-5.4); WHITE BLOOD CELL COUNT,WBC 7.7 10^3/uL (5.0-10.0)
[2025-04-06 06:50] LABS: ALANINE AMINOTRANSFERASE,ALT 41.0 U/L (14-59); ASPARTATE AMNIOTRANSFERASE,AST 41.0 U/L (15-37); BILIRUBIN TOTAL 0.4 mg/dL (0.2-1.0); BLOOD UREA NITROGEN,BUN 21.0 mg/dL (7-18); CARBON DIOXIDE,CO2 31.0 mmol/L (21-32); CHLORIDE,CL 101.0 mmol/L (98-107); CREATININE 0.37 mg/dL (0.55-1.02); EST CRCL DRUG DOSING (CG) 76.39 mL/min; GLUCOSE RANDOM 115.0 mg/dL (70-99); INR 1.2 (0.9-1.2); POTASSIUM,K 4.2 mmol/L (3.5-5.1); PROTEIN TOTAL,TP 6.9 g/dL (6.4-8.2); PTT,PARTIAL THROMBOPLSTIN TIME 28.3 SEC (22.0-34.0); SODIUM,NA 135.0 mmol/L (136-145)
[2025-04-06 06:53] LABS: A/G RATIO 0.73; ESTIMATED GFR 97.0 mL/min (>=60)
[2025-04-06 11:19] VITALS: BP 109/70; PULSE 86
[2025-04-06] MEDS ORDERED: Warfarin** 1 MG TABLET PO ONE (14:00)
== END 2025-04-06 13:20 | DRG 194 ==
LOC: DL.ED 14:18 → DL.MS 15:44
PROVIDERS: ADMIT Student in an Organized Health Care Education/Training Program; ATTEND Student in an Organized Health Care Education/Training Program
DX: J18.0 Bronchopneumonia, unspecified organism (principal); E87.1 Hypo-osmolality and hyponatremia; I50.32 Chronic diastolic (congestive) heart failure; M80.08XA Age-related osteoporosis with current pathological fracture, vertebra(e), initial encounter for fracture; R62.7 Adult failure to thrive; R29.6 Repeated falls; I11.0 Hypertensive heart disease with heart failure; H91.90 Unspecified hearing loss, unspecified ear; E88.09 Other disorders of plasma-protein metabolism, not elsewhere classified; I27.20 Pulmonary hypertension, unspecified; I25.10 Atherosclerotic heart disease of native coronary artery without angina pectoris; H54.7 Unspecified visual loss; I48.91 Unspecified atrial fibrillation; G62.9 Polyneuropathy, unspecified; Z85.820 Personal history of malignant melanoma of skin; Z88.5 Allergy status to narcotic agent; Z88.8 Allergy status to other drugs, medicaments and biological substances; Z98.890 Other specified postprocedural states; Z95.5 Presence of coronary angioplasty implant and graft; Z79.82 Long term (current) use of aspirin; Z79.899 Other long term (current) drug therapy; Z79.01 Long term (current) use of anticoagulants; Z86.16 Personal history of COVID-19; Z90.49 Acquired absence of other specified parts of digestive tract
CPT/HCPCS: 36415; 71045; 80053; 81001; 82607; 82728; 82746; 82977; 83540; 83550; 83735; 83880; 84439; 84443; 84484; 85025; 85610; 85730; 92610-GN; 93005; 93010; 94010; 97161-GP; 97165-GO; 97530-GO; 97530-GP; 99223; 99232; 99233; 99238; 99285; A9270-GY